=== PATIENT | male | born 1970 | race Hispanic/Latino ===

== ENCOUNTER 2018-10-02 10:57 | Inpatient (IN) | payer OTHER ==
[~2018-10-02] VITALS: Ht 182.9 cm; Wt 106.0 kg
[2018-10-02 11:31] LABS: BASOPHILS % (AUTO) 0.5 % (0.0-5.0); EOSINOPHILS % (AUTO) 0.9 % (0.0-8.0); LYMPHOCYTES % (AUTO) 15.9 % (21.0-51.0); MEAN CORPUSCULAR HEMOGLOBIN 29.3 pg (27.0-33.0); MEAN CORPUSCULAR HGB CONC 34.3 g/dL (32.0-36.0); MEAN CORPUSCULAR VOLUME 85.4 fL (79-99); MONOCYTES % (AUTO) 10.2 % (3.0-13.0); NEUTROPHILS % (AUTO) 72.5 % (40.0-77.0); PLATELET COUNT (AUTO) 281 K/uL (130-400); RED CELL DISTRIBUTION WIDTH 12.9 % (11.0-15.5); WHITE BLOOD COUNT (AUTO) 12.7 K/uL (4.8-10.8)
[2018-10-02 11:36] LABS: POTASSIUM 3.9 mmol/L (3.5-5.1)
[2018-10-02 11:42] LABS: INR 0.99 (0.85-1.15); PARTIAL THROMBOPLASTIN TIME 29.7 SEC (26.3-35.5); PROTHROMBIN TIME 10.4 SEC (9.6-11.6)
[2018-10-02 11:43] LABS: BILIRUBIN,TOTAL 1.5 mg/dL (0.2-1.0); TOTAL PROTEIN, SERUM 8.2 g/dL (6.0-8.3)
[2018-10-02] MEDS ORDERED: SODIUM CHLORIDE 0.9% 1000ML 1,000 ML IV ONE ×2 (11:48→17:11)
[2018-10-02] MEDS ORDERED: IOHEXOL-350 75 ML VIAL IV ONE (12:04)
[2018-10-02] MEDS ORDERED: LEVOFLOXACIN 500 MG/D5W 100 ML 100 ML ONE (13:20)
[2018-10-02] MEDS ORDERED: METRONIDAZOLE 500MG/100ML BAG 100 ML ONE (13:21)
[2018-10-02 14:59] LABS: APPEARANCE,URINE Clear (CLEAR); BILIRUBIN,URINE Negative (NEGATIVE); COLOR,URINE Yellow (YELLOW); GLUCOSE, URINE (UA) Negative (NEGATIVE); KETONES,URINE Negative (NEGATIVE); LEUKOCYTE ESTERASE ,URINE Negative (NEGATIVE); NITRATE,URINE Negative (NEGATIVE); OCCULT BLOOD,URINE Negative (NEGATIVE); PH,URINE 7.5 (5.0-8.0); PROTEIN,URINE Negative (NEGATIVE)
[2018-10-02] MEDS ORDERED: SODIUM CHLORIDE 0.9% 1000ML 1,000 ML IV SCH (15:32)
[2018-10-02] MEDS ORDERED: HYDRALAZINE HCL 20 MG/ML VIAL IV PRN (15:45)
[2018-10-02] MEDS ORDERED: VANCOMYCIN PROTOCOL PER PHARMACY IV PRN ×2 (15:45→19:00)
[2018-10-02] MEDS ORDERED: VANCOMYCIN 1GM+NS 250ML 250 ML IV SCH (15:45)
[2018-10-02] MEDS ORDERED: MORPHINE SULFATE 2 MG/ML 1ML SYG IV PRN (15:45)
[2018-10-02] MEDS ORDERED: ACETAMINOPHEN 325 MG TAB PO PRN ×2 (15:45)
[2018-10-02] MEDS ORDERED: ONDANSETRON HCL 4 MG/2 ML VIAL IV PRN (15:45)
[2018-10-02] MEDS ORDERED: VANCOMYCIN 1GM+NS 250ML 250 ML IV ONE (17:10)
[2018-10-02 20:00] VITALS: BP 119/68
[2018-10-02] MEDS: HYDROCODONE/ACETAMINOPHEN 5/325 MG TAB PO PRN (21:33)
[2018-10-02] MEDS: ZOSYN 3.375GM+NS 50ML 50 ML IV SCH (21:33)
[2018-10-03] VITALS (27 sets, daily range): BP systolic 109–149; BP diastolic 63–84
[2018-10-03] MEDS ORDERED: VANCOMYCIN 1.5 GM in SODIUM CHLORIDE 0.9% 250 ML IV ONE (01:00)
[2018-10-03] MEDS: ZOSYN 3.375GM+NS 50ML 50 ML IV SCH ×3 (05:33→22:09)
[2018-10-03 05:35] LABS: HEMATOCRIT 42.2 % (42-54); MEAN CORPUSCULAR HEMOGLOBIN 29.4 pg (27.0-33.0); MEAN CORPUSCULAR HGB CONC 33.9 g/dL (32.0-36.0); MEAN CORPUSCULAR VOLUME 86.6 fL (79-99); PLATELET COUNT (AUTO) 255 K/uL (130-400); RED BLOOD CELL COUNT(AUTO) 4.88 MIL/uL (4.50-6.20); RED CELL DISTRIBUTION WIDTH 12.8 % (11.0-15.5); WHITE BLOOD COUNT (AUTO) 14.3 K/uL (4.8-10.8)
[2018-10-03 05:49] LABS: ALBUMIN 3.2 g/dL (3.5-5.0); CREATININE 0.9 mg/dL (0.5-1.5); POTASSIUM 4.2 mmol/L (3.5-5.1)
[2018-10-03] MEDS ORDERED: VANCOMYCIN 1GM+NS 250ML 250 ML IV SCH (09:00)
[2018-10-03] MEDS: ENOXAPARIN SODIUM 40 MG/0.4 ML SYRINGE SQ SCH (09:00)
[2018-10-03] MEDS: SODIUM CHLORIDE 0.9% 1000ML 1,000 ML IV SCH ×3 (09:15→16:48)
[2018-10-03] MEDS ORDERED: LACTATED RINGERS 1000ML 1,000 ML IV ONE (09:21)
[2018-10-03] MEDS ORDERED: LIDOCAINE PF 2% 5ML ABBOJECT ONE (09:46)
[2018-10-03] MEDS ORDERED: DEXAMETHASONE SOD PHOSPHATE 10MG/ML 1ML VIAL ONE (09:46)
[2018-10-03] MEDS ORDERED: PROPOFOL 10 MG/ML 20ML VIAL IV ONE (09:47)
[2018-10-03] MEDS ORDERED: MIDAZOLAM HCL 1 MG/ML 2ML VIAL ONE (09:47)
[2018-10-03] MEDS ORDERED: ONDANSETRON HCL 4 MG/2 ML VIAL ONE (09:48)
[2018-10-03] MEDS ORDERED: FENTANYL CITRATE PF 50 MCG/1 ML 2ML VIAL ONE (09:51)
[2018-10-03] MEDS ORDERED: ACETAMINOPHEN-CODEINE 300/30MG TAB PO PRN (10:15)
[2018-10-03] MEDS ORDERED: IPRATROPIUM/ALBUTEROL SULFATE 3 ML SOLUTION IH ONE (10:44)
[2018-10-03] MEDS ORDERED: METRONIDAZOLE 500MG/100ML BAG 100 ML IV SCH (14:00)
--- NOTE | 2018-10-03 14:00 | NUR ---
INITIAL SPOKE W PATIENT S/P I/D; AAOX3; LIVES ALONE ; INDP OF ADLS, NO DME, SISTER WILL PROVIDE TRANSPORT; PT MAY HAVE SOME DC NEEDS- DSG TO RECL SURGERY- POSS ABX. WILL FOLLOW Addendum: 10/03/18 at 1602 by LILA TEE RN CM Amended: Links added.
[2018-10-03] MEDS: HYDROCODONE/ACETAMINOPHEN 5/325 MG TAB PO PRN (17:16)
[2018-10-04] VITALS: BP_SYST 117; BP_SYST 126; BP_DIAS 74; BP_DIAS 78
[2018-10-04 04:58] LABS: HEMATOCRIT 38.8 % (42-54); MEAN CORPUSCULAR HEMOGLOBIN 29.1 pg (27.0-33.0); MEAN CORPUSCULAR VOLUME 85.6 fL (79-99); PLATELET COUNT (AUTO) 250 K/uL (130-400); RED BLOOD CELL COUNT(AUTO) 4.54 MIL/uL (4.50-6.20); RED CELL DISTRIBUTION WIDTH 12.8 % (11.0-15.5); WHITE BLOOD COUNT (AUTO) 13.5 K/uL (4.8-10.8)
[2018-10-04 05:21] LABS: CREATININE 2.3 mg/dL (0.5-1.5)
[2018-10-04] MEDS: ZOSYN 3.375GM+NS 50ML 50 ML IV SCH ×3 (05:26→22:13)
[2018-10-04 06:39] VITALS: BP 121/74
[2018-10-04 08:00] VITALS: BP 132/84
[2018-10-04] MEDS: SODIUM CHLORIDE 0.9% 1000ML 1,000 ML IV SCH ×3 (08:32→17:15)
[2018-10-04] MEDS: ENOXAPARIN SODIUM 40 MG/0.4 ML SYRINGE SQ SCH (09:26)
--- NOTE | 2018-10-04 10:48 | NUR ---
LABS CREAT UP TO 2.3 FROM 0.9 IN 24 HOURS, PATIENT IS ON ZOSYN, VANCO WAS DC'D AFTER 1 DOSE, NS RUNNING AT 125. PT ASYMPTOMATIC. NOTIFIED OF FINDINGS.
[2018-10-04 12:00] VITALS: BP 123/71
[2018-10-04 16:00] VITALS: BP 133/84
[2018-10-04] MEDS ORDERED: LACTULOSE 20 GM/30 ML UDCUP ONE (17:28)
[2018-10-04 19:00] VITALS: BP 132/78
[2018-10-04] MEDS ORDERED: LACTULOSE 20 GM/30 ML UDCUP PO SCH (21:00)
[2018-10-05] VITALS (7 sets, daily range): BP systolic 107–132; BP diastolic 64–84
[2018-10-05] MEDS ORDERED: LACTULOSE 20 GM/30 ML UDCUP PO PRN (01:30)
[2018-10-05 04:49] LABS: BASOPHILS % (AUTO) 0.5 % (0.0-5.0); EOSINOPHILS % (AUTO) 1.6 % (0.0-8.0); HEMATOCRIT 37.9 % (42-54); LYMPHOCYTES % (AUTO) 16.5 % (21.0-51.0); MEAN CORPUSCULAR HEMOGLOBIN 29.4 pg (27.0-33.0); MEAN CORPUSCULAR VOLUME 86.5 fL (79-99); MONOCYTES % (AUTO) 10.7 % (3.0-13.0); NEUTROPHILS % (AUTO) 70.7 % (40.0-77.0); NUCLEATED RED BLOOD CELLS 0.1 % (0.0-0.19); PLATELET COUNT (AUTO) 237 K/uL (130-400); RED BLOOD CELL COUNT(AUTO) 4.38 MIL/uL (4.50-6.20); RED CELL DISTRIBUTION WIDTH 12.9 % (11.0-15.5); WHITE BLOOD COUNT (AUTO) 11.4 K/uL (4.8-10.8)
[2018-10-05 05:04] LABS: CREATININE 2.6 mg/dL (0.5-1.5); POTASSIUM 3.7 mmol/L (3.5-5.1)
[2018-10-05] MEDS: ZOSYN 3.375GM+NS 50ML 50 ML IV SCH ×2 (05:19→12:20)
[2018-10-05] MEDS: SODIUM CHLORIDE 0.9% 1000ML 1,000 ML IV SCH ×2 (05:19→19:35)
[2018-10-05] MEDS: ENOXAPARIN SODIUM 40 MG/0.4 ML SYRINGE SQ SCH (08:58)
[2018-10-05] MEDS: CEFTRIAXONE SODIUM 2 GM VIAL IVP SCH (13:41)
--- NOTE | 2018-10-05 14:30 | NUR ---
SURGEON DR. KHAN IN TO SEE PATIENT. HE ASSESSED PATIENT'S I&D SITE, REMOVED A PIECE OF PACKING STRIP AND REPLACED THE GAUZE AND ABD PAD. PATIENT TOLERATED WELL. NEW ORDERS RECEIVED.
[2018-10-06 03:43] VITALS: BP 130/68
[2018-10-06 03:51] LABS: BASOPHILS % (AUTO) 0.9 % (0.0-5.0); EOSINOPHILS % (AUTO) 1.8 % (0.0-8.0); HEMATOCRIT 35.5 % (42-54); LYMPHOCYTES % (AUTO) 19.4 % (21.0-51.0); MEAN CORPUSCULAR HEMOGLOBIN 29.8 pg (27.0-33.0); MEAN CORPUSCULAR HGB CONC 34.6 g/dL (32.0-36.0); MEAN CORPUSCULAR VOLUME 86.3 fL (79-99); MONOCYTES % (AUTO) 11.7 % (3.0-13.0); NEUTROPHILS % (AUTO) 66.2 % (40.0-77.0); PLATELET COUNT (AUTO) 243 K/uL (130-400); RED BLOOD CELL COUNT(AUTO) 4.11 MIL/uL (4.50-6.20); RED CELL DISTRIBUTION WIDTH 12.8 % (11.0-15.5); WHITE BLOOD COUNT (AUTO) 9.6 K/uL (4.8-10.8)
[2018-10-06 04:01] LABS: CREATININE 2.4 mg/dL (0.5-1.5); POTASSIUM 3.7 mmol/L (3.5-5.1)
[2018-10-06 07:59] VITALS: BP 128/75
[2018-10-06] MEDS: SODIUM CHLORIDE 0.9% 1000ML 1,000 ML IV SCH ×2 (09:37→21:46)
[2018-10-06] MEDS: ENOXAPARIN SODIUM 40 MG/0.4 ML SYRINGE SQ SCH (09:39)
[2018-10-06 11:51] VITALS: BP 112/87
[2018-10-06] MEDS: CEFTRIAXONE SODIUM 2 GM VIAL IVP SCH (13:31)
[2018-10-06 16:49] VITALS: BP 149/68
[2018-10-06 20:09] VITALS: BP 130/60
--- NOTE | 2018-10-06 20:40 | NUR ---
ASSESS SHIFT ASSESSMENT DONE, PLEASE REFER TO CHART. PT'S DRESSING TO GARY-RECTAL AREA WAS REMOVED WHEN PT WENT TO HAVE A BM. NO NOTED PACKING WHEN INSPECTED WOUND. CLEANSED AREA WITH WET WIPES AND REMOVED SOME RESIDUAL STOOLS. WOUND DRESSING APPLIED ON GARY-RECTAL AREA. 4X4 PLACED THEN COVERED WITH SANITARY PAD. PT ASSISTED TO USE DISPOSABLE PANTIES. PT COMPLAINTS OF ABDOMINAL PAINS, CLAIMS GAS PAINS. ASKED PT TO WALK AROUND THE ROOM. PT BURPED BUT NO PASSAGE OF GAS AFTER WALKING. WARM PACKS PROVIDED. MEDICATED WITH NORCO PO FOR PAINS. WILL RE-ASSESS PT. Addendum: 10/07/18 at 0105 by SIS LONDON RN RN Amended: Links added.
[2018-10-06] MEDS: HYDROCODONE/ACETAMINOPHEN 5/325 MG TAB PO PRN (20:42)
[2018-10-06 23:32] VITALS: BP 133/75
[2018-10-07] MEDS: SODIUM CHLORIDE 0.9% 1000ML 1,000 ML IV SCH ×2 (01:25→11:35)
--- NOTE | 2018-10-07 01:40 | NUR ---
PAIN PT AWAKENS AND COMPLAINTS OF HAVING GAS PAINS. NOTED DISTENDED ABDOMEN AND IS NOTED TO BE FIRM UPON PALPATION. 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 NEW MED ORDER GIVEN. LOAN INTER[employer]ER [employer] NEW IVF OF NS WITH NEW TUBING, REGULATED AT 75CC/HR. MEDICATED PT. WARM PACK APPLIED TO ABDOMINAL AREA. WILL RE-ASSESS.
[2018-10-07] MEDS ORDERED: SIMETHICONE 80 MG TAB.CHEW ONE (01:41)
[2018-10-07] MEDS: HYDROCODONE/ACETAMINOPHEN 5/325 MG TAB PO PRN (01:43)
[2018-10-07] MEDS ORDERED: SIMETHICONE 80 MG TAB.CHEW PO PRN (01:45)
[2018-10-07 04:21] VITALS: BP 132/72
[2018-10-07 04:28] LABS: BASOPHILS % (AUTO) 0.9 % (0.0-5.0); EOSINOPHILS % (AUTO) 2.9 % (0.0-8.0); HEMATOCRIT 36.9 % (42-54); LYMPHOCYTES % (AUTO) 20.2 % (21.0-51.0); MEAN CORPUSCULAR HEMOGLOBIN 28.8 pg (27.0-33.0); MEAN CORPUSCULAR HGB CONC 33.6 g/dL (32.0-36.0); MEAN CORPUSCULAR VOLUME 85.7 fL (79-99); MONOCYTES % (AUTO) 12.2 % (3.0-13.0); NEUTROPHILS % (AUTO) 63.8 % (40.0-77.0); PLATELET COUNT (AUTO) 268 K/uL (130-400); RED BLOOD CELL COUNT(AUTO) 4.31 MIL/uL (4.50-6.20); RED CELL DISTRIBUTION WIDTH 12.8 % (11.0-15.5); WHITE BLOOD COUNT (AUTO) 9.1 K/uL (4.8-10.8)
[2018-10-07 04:37] LABS: CREATININE 1.9 mg/dL (0.5-1.5); POTASSIUM 4.2 mmol/L (3.5-5.1)
--- NOTE | 2018-10-07 06:08 | NUR ---
PAGED PAGED DR KHAN VIA ANSWERING SERVICE TO VERIFY WOUND CARE ORDERS. AWAITING CALL BACK.
[2018-10-07 08:00] VITALS: BP 149/81
[2018-10-07] MEDS: ENOXAPARIN SODIUM 40 MG/0.4 ML SYRINGE SQ SCH (09:26)
[2018-10-07 11:49] VITALS: BP 129/78
[2018-10-07] MEDS: CEFTRIAXONE SODIUM 2 GM VIAL IVP SCH (13:09)
--- NOTE | 2018-10-07 15:30 | NUR ---
DRESSING CHANGE PERFORMED ON THE GARY-RECTAL SITE. PATIENT TOLERATED IT WELL. NO DRAINAGE OR FOUL ODOR NOTED.
--- NOTE | 2018-10-07 16:39 | NUR ---
DISCHARGE INSTRUCTIONS PROVIDED TO THE PATIENT WITH PRESCRIPTIONS AND FOLLOW-UP RECOMMENDATIONS WERE GIVEN TO HIM IN PRINTED FORM AND HE VERBALIZED UNDERSTANDING. PATIENT LEFT THE UNIT IN STABLE CONDITION AMBULATORY ACCOMPANIED BY STAFF.
== END 2018-10-07 16:25 | disposition home or self-care (01) | DRG 854 ==
LOC: EDH 10:57 → EDHIP 15:32 → 4CH 19:36
PROVIDERS: ADMIT Internal Medicine; ATTEND Internal Medicine
PROC: 0D9P0ZZ Drainage of Rectum, Open Approach (ICD-10-PCS; principal; 2018-10-03 10:00)
DX: A41.50 Gram-negative sepsis, unspecified (principal); E44.0 Moderate protein-calorie malnutrition; K61.1 Rectal abscess; N17.9 Acute kidney failure, unspecified; Z68.31 Body mass index [BMI] 31.0-31.9, adult; E66.9 Obesity, unspecified; K59.00 Constipation, unspecified
CPT/HCPCS: 36415; 74177; 80048; 80053; 81003; 82040; 82150; 82550; 83605; 83690; 84484; 85025; 85027; 85610; 85651; 85730; 86140; 87040; 87070; 87076; 87077; 87186; 93005; 94640; G0378; J0696; J1100; J1650; J1956; J2001; J2250; J2405; J2543; J2704; J3010; J3370; J3490; J7030; J7120; Q9967